=== PATIENT | female | born 1985 | race Caucasian/White ===

== ENCOUNTER 2020-01-04 14:49 | Emergency (ER) | payer OTHER, SELFPAY ==
[2020-01-04 14:59] VITALS: BP 147/89; PULSE 91; RESP 16; TEMP 37.4; O2SAT 99
--- NOTE | 2020-01-04 15:11 | ED.GENADULT ---
HPI - General Adult General Chief complaint: Urogenital-Female Stated complaint: severe cramps Time Seen by Provider: 01/04/20 15:11 Source: patient and RN notes reviewed Mode of arrival: ambulatory Limitations: no limitations History of Present Illness HPI narrative: This is a 34 years old female presents to the office for an evaluation of lower abdominal pain for a couple days. Symptoms began with mild cramping across her pelvic region after she ate dinner and then pain became more constant and continue to get worse over time. She could not find a comfortable position today. Walking helps minimize the pain. Sitting still or standing still make pain worse. Denies nauseous, vomiting, diarrhea or constipation. She tried ibuprofen for her symptoms. Denies similar pain in the past. Denies history of hernia or kidney stone. She admits to recent menstrual cycle however it was shorter than her typical cycle. She admits to tubal ligation. She had a normal BM today. Related Data Home Medications Medication Instructions Recorded Confirmed No Home Medications 01/04/20 01/04/20 Allergies Allergy/AdvReac Type Severity Reaction Status Date / Time Penicillins Allergy Unknown Unknown Verified 01/04/20 15:06 nitrofurantoin Allergy Unknown Verified 01/04/20 15:06 [From autoGraphbiPhotorank] Review of Systems Review of Systems: Narrative: CONSTITUTIONAL: Denies fever ENT: Denies congestion, sore throat, otalgia. CARDIOVASCULAR: Denies chest pain, palpitation RESPIRATORY: Denies dyspnea, wheezing, cough GASTROINTESTINAL: Reports abdominal pain. Denies nausea, vomiting, diarrhea. GENITOURINARY: Denies urinary symptoms or discharge or lesions SKIN: Denies rash MUSCULOSKELETAL: Reports left leg that radiate from her pelvic pain NEUROLOGIC: Denies lightheaded/dizziness All other systems reviewed are negative, except as documented in HPI. PMFSH Surgical History Surgical History (Updated 01/04/20 @ 15:42 by PETE George) Hx of tubal ligation Social History Social History Gender identity (if verbalized by the patient): Female Comments At time of signature, I agree with nursing past medical, surgical, social and family history. There is no relevant family history pertinent to the presenting complaint. Exam Narrative: Exam Narrative: GENERAL: This is a well-nourished, well-developed patient, in no apparent distress. CARDIOVASCULAR: Regular rate and rhythm without murmurs, gallops, or rubs. RESPIRATORY: Clear to auscultation. Breath sounds equal bilaterally. No wheezes, rales, or rhonchi. GASTROINTESTINAL: Abdomen soft, left lower quadrant is very tender to palpation, nondistended. Bowel sounds are active. No hepato-splenomegaly, or palpable masses. patient is guarding and appears uncomfort. SKIN: warm, intact with no suspicious lesions or rash, good texture and turgor. NEURO: awake, alert, and oriented to person, place and time. There were no obvious focal neurologic abnormalities. Steady gait EXTREMITIES: Normal range of motion. [place] Coma Scale Eye Opening: Spontaneous 4 [place] Coma Scale Motor: Obeys Commands 6 Lj Coma Scale Verbal: Oriented 5 Course Vital Signs Vital signs: Vital Signs Temperature 99.4 F 01/04/20 14:59 Pulse Rate 91 01/04/20 14:59 Respiratory Rate 16 01/04/20 14:59 Blood Pressure 147/89 H 01/04/20 14:59 Pulse Oximetry 99 01/04/20 14:59 Temperature 99.4 F 01/04/20 14:59 Pulse Rate 91 01/04/20 14:59 Respiratory Rate 16 01/04/20 14:59 Blood Pressure 147/89 H 01/04/20 14:59 Pulse Oximetry 99 01/04/20 14:59 Transfer Transfered to: [facility] Transportation: Other (private vehicle) Transfer rationale: diagnostic test Accepting physician: Dr. Wise, reports given to GEORGE [facility] Decision Making MDM Narrative Medical decision making narrative: Discuss DDX with patient and recommend ER for fur
== END 2020-01-04 15:29 | disposition short-term general hospital (02) ==
PROVIDERS: Emergency Provider Nurse Practitioner
DX: R10.32 Left lower quadrant pain (principal)
CPT/HCPCS: 81003; 81025; 99213; G0463

== ENCOUNTER 2020-01-04 15:54 | Emergency (ER) | payer OTHER, SELFPAY ==
--- NOTE | ~2020-01-04 | US_ITS ---
US pelvic complete w TV DATE: 01/04/2020 17:38 INDICATION: Left pelvic pain for a couple of days TECHNIQUE: Real-time imaging via transabdominal and transvaginal views COMPARISON: None FINDINGS: The uterus measures 7.9 cm height and 4 cm anteroposterior dimension. The central endometrial echo complex measures 8.5 mm maximal AP dimension. The central endometrial echo complex measures 6.4 mm anteroposterior dimension. There is a 2.2 cm sep tated left ovarian cystic lesion. No pelvic mass or abnormal pelvic free fluid collection is noted otherwise. IMPRESSION: 2.2 cm septated left ovarian cyst; recommend short-term follow-up ultrasound examination in approximately 3 months Reviewed, dictated and finalized at [facility] Reviewed, dictated and finalized at [facility] IMPRESSION: 2.2 cm septated left ovarian cyst; recommend short-term follow-up u ltrasound examination in approximately 3 months
[2020-01-04 15:55] VITALS: BP 166/100; PULSE 87; RESP 14; TEMP 37.3; O2SAT 100
[2020-01-04 16:36] LABS: Basophils Absolute Auto 0.1 K/mm3 (0.0-0.1); Basophils Percent Auto 0.7 % (0.2-1.2); Eosinophils Absolute Auto 0.1 K/mm3 (0-0.3); Eosinophils Percent Auto 0.9 % (0-4.4); Hematocrit 38.1 % (37.0-47.0); Hemoglobin 12.6 g/dL (12.0-15.0); Immature Granulocyte Absolute 0.01 K/mm3 (0.00-0.031); Immature Granulocyte Percent A 0.1 % (0-0.5); Lymphocytes Absolute Auto 2.06 K/mm3 (0.9-3.2); Lymphocytes Percent Auto 27.2 % (18.3-44.2); Mean Corpuscular HGB Conc 33.1 g/dl (32-36); Mean Corpuscular Hemoglobin 30.4 pg (26-34); Mean Platelet Volume 10.7 fl (7.4-10.4); Monocytes Absolute Auto 0.5 K/mm3 (0.1-0.6); Monocytes Percent Auto 6.7 % (2.6-8.5); Neutrophils Absolute Auto 4.9 K/mm3 (1.3-6.7); Neutrophils Percent Auto 64.4 % (45.5-73.1); Platelet Count Result 294 k/mm3 (150-375); Red Blood Count 4.14 M/mm3 (4.2-5.4); Red Cell Distribution Width 13.2 % (11.5-14.5); White Blood Count 7.6 K/mm3 (4.5-10.0)
[2020-01-04 16:39] LABS: Add Urine Microscopic? YES; Appearance Urine Clear (Clear); Bilirubin Urine Negative (Negative); Blood Urine Negative (Negative); Color Urine Yellow (Yellow); Glucose Urine UA Negative (Negative); Ketones Urine Negative (Negative); Leukocyte Esterase Ur Trace LEU/UL (Negative); Mucus Urine Rare /lpf; Nitrate Urine Negative (Negative); Protein Urine Negative (Negative); RBC Urine 0-2 /hpf (0-2); Specific Grav Ur 1.011 (1.001-1.035); Squamous Epithelial Cell Urine Rare /hpf (Few); Urobilinogen Urine Negative mg/dL (<2.0)
--- NOTE | 2020-01-04 16:41 | ED.ABDPAIN ---
HPI - Abdominal Pain General Chief Complaint: Abdominal Pain Stated Complaint: L abd pain Time Seen by Provider: 01/04/20 16:15 Source: patient Mode of arrival: ambulatory Limitations: no limitations History of Present Illness HPI narrative: This is a 34-year-old female that presents emergency department for left-sided pelvic pain since last night. Reports it has been intermittent over the last couple of days. Reports since last night the pain has been constant. The pain is cramping in nature. She was seen at urgent care and sent here for further evaluation. Denies fever, nausea, vomiting, dysuria, hematuria. Related Data Allergies Allergy/AdvReac Type Severity Reaction Status Date / Time Penicillins Allergy Unknown Unknown Verified 01/04/20 15:55 nitrofurantoin Allergy Unknown Verified 01/04/20 15:55 [From Macrobid] Review of Systems Review of Systems: Narrative: CONSTITUTIONAL: Denies fever GASTROINTESTINAL: Reports abdominal pain. Denies nausea, vomiting, or diarrhea. GENITOURINARY: Denies dysuria or hematuria. All systems reviewed & are unremarkable except as noted in HPI and below PMFSH Past Medical History Medical History (Updated 01/04/20 @ 19:06 by Shagufta Cho PA-C) No active medical problems Surgical History Surgical History (Updated 01/04/20 @ 15:42 by PETE George) Hx of tubal ligation Social History Social History Gender identity (if verbalized by the patient): Female Exam Narrative: Exam Narrative: GENERAL: Well-appearing, well-nourished, and in no acute distress. HEAD: Normocephalic, atraumatic. EYES: EOMI. CHEST: Clear to auscultation. No respiratory distress. No wheezes rales or rhonchi HEART: Regular rate and rhythm. No murmur heard. Normal peripheral pulses. ABDOMEN: Soft, nondistended, normal active bowel sounds. Tender to palpation of the LLQ, without guarding. No CVA tenderness EXTREMITIES: Normal range of motion. No edema. SKIN: Warm, dry, no rash. NEURO: No focal deficits. Alert and oriented x3. PSYCH: Normal mood and affect Course Vital Signs Vital signs: Vital Signs Temperature 99.2 F 08/15/20 15:55 Pulse Rate 87 01/04/20 15:55 Respiratory Rate 14 01/04/20 15:55 Blood Pressure 166/100 H 01/04/20 15:55 Pulse Oximetry 100 01/04/20 15:55 Temperature 99.2 F 01/04/20 18:53 Pulse Rate 65 01/04/20 17:50 Respiratory Rate 18 01/04/20 17:50 Blood Pressure 113/71 01/04/20 17:50 Pulse Oximetry 100 01/04/20 17:50 MDM - Abdominal Pain MDM Narrative Medical decision making narrative: Patient presents the emergency department for left-sided pelvic pain x3 days. Patient is afebrile and nontoxic-appearing. CBC and metabolic panel without concerning changes. UA with 10-15 white blood cells and trace leuk esterase. Patient will be started on oral antibiotic. This will go for culture. Bedside test is negative. Pelvic ultrasound shows a 2.2 cm left ovarian cyst, recommend short-term follow-up with an ultrasound. Good vascular flow to both of the ovaries. Patient reports improvement with IV Tylenol and Toradol. Patient and family updated on case findings. She is felt appropriate for further outpatient evaluation. She is to follow-up with her tc operator. She was given warnings to return to the ER Lab Data Attestation: I reviewed the patient's lab results. Result diagrams: 01/04/20 16:09 01/04/20 16:09 Labs: Lab Results 01/04/20 01/04/20 01/04/20 Range/Units 16:09 16:09 16:09 WBC 7.6 (4.5-10.0) K/mm3 RBC 4.14 L (4.2-5.4) M/mm3 Hgb 12.6 (12.0-15.0) g/dL Hct 38.1 (37.0-47.0) % MCV 92.0 (80-100) fl MCH 30.4 (26-34) pg MCHC 33.1 (32-36) g/dl RDW 13.2 (11.5-14.5) % Plt Count 294 (150-375) k/mm3 MPV 10.7 H (7.4-10.4) fl Immature Gran % (Auto) 0.1 (0-0.5) % Neut % (Auto) 64.
[2020-01-04 16:46] LABS: Alanine Aminotransferase 25 U/L (4-35); Albumin Level 4.5 g/dL (3.5-5.1); Alkaline Phosphatase 115 U/L (38-126); Anion Gap 8 mmol/L (8-16); Aspartate Amino Transferase 30 U/L (14-36); Bilirubin,Total 0.4 mg/dL (0.2-1.3); Blood Urea Nitrogen 8 mg/dL (7-17); Calcium 8.6 mg/dL (8.4-10.2); Carbon Dioxide 21 mmol/L (22-30); Chloride 106 mmol/L (98-107); Estimated CRCL calculation 103 ml/min; Estimated Glomerular Filt Rate > 60; Glucose 96 mg/dL (65-105); Lipase 214 U/L (23-300); Sodium 135 mmol/L (137-145)
[2020-01-04 17:23] VITALS: TEMP 37.3
[2020-01-04 17:50] VITALS: BP 113/71; PULSE 65; RESP 18; O2SAT 100
[2020-01-04] MEDS: KETOROLAC 30 MG/ML VIAL (*BKC) IV PUSH (18:20)
[2020-01-04 18:53] VITALS: TEMP 37.3
[2020-01-04 19:17] VITALS: BP 119/79; PULSE 70; RESP 16; O2SAT 99
== END 2020-01-04 19:19 | disposition home or self-care (01) ==
PROVIDERS: Emergency Provider Emergency Medicine
DX: N83.202 Unspecified ovarian cyst, left side (principal); R82.81 Pyuria
CPT/HCPCS: 36415; 76830; 76856; 80053; 81001; 81003; 81025; 83690; 85025; 87077; 87086; 87088; 87186; 96365; 96375; 99213; 99284; G0463; J0131; J1885